=== PATIENT | male | born 1965 ===

== ENCOUNTER 2022-01-12 16:45 | Inpatient (IN) | payer OTHER ==
[~2022-01-12] VITALS: Ht 175.3 cm; Wt 127.3 kg
[2022-01-12] MEDS ORDERED: dilTIAZem DRIP PRE-MIX 125 ML IV SCH (17:00)
[2022-01-12] MEDS ORDERED: NS IV 1000 ML 1,000 ML ONE (17:02)
[2022-01-12] MEDS ORDERED: NS IV 1000 ML 1,000 ML IV SCH (17:15)
[2022-01-12 17:16] LABS: BASOPHILS # (AUTO) 0.1 10^3/uL (0.0-0.1); BASOPHILS % (AUTO) 1 % (0-10); EOSINOPHILS # (AUTO) 0.1 10^3/uL (0.0-0.3); EOSINOPHILS % (AUTO) 0 % (0-10); HEMATOCRIT 53 % (40-54); HEMOGLOBIN 17.5 g/dL (13.3-17.7); LYMPHOCYTES % (AUTO) 35 % (12-44); MEAN CORPUSCULAR HEMOGLOBIN 32 pg (25-34); MEAN CORPUSCULAR HGB CONC 33 g/dL (32-36); MEAN CORPUSCULAR VOLUME 97 fL (80-99); MEAN PLATELET VOLUME 9.9 fL (9.0-12.2); MONOCYTES # (AUTO) 0.8 10^3/uL (0.0-1.0); MONOCYTES % (AUTO) 7 % (0-12); NEUTROPHILS # (AUTO) 6.4 10^3/uL (1.8-7.8); NEUTROPHILS % (AUTO) 56 % (42-75); PLATELET COUNT 439 10^3/uL (130-400); WHITE BLOOD COUNT 11.4 10^3/uL (4.3-11.0)
--- NOTE | 2022-01-12 17:18 | Diagnostic Imaging Report ---
EXAMINATION: Chest 1 view HISTORY: Chest pain COMPARISON: None available. FINDINGS: The lungs are clear without edema or pneumonia. No pleural effusion or pneumothorax. Heart size is normal. IMPRESSION: 1. Clear lungs. Dictated by: Dictated on workstation # [id number]
[2022-01-12 17:29] LABS: CHLORIDE 101 MMOL/L (98-107); POTASSIUM 3.8 MMOL/L (3.6-5.0); SODIUM 141 MMOL/L (135-145)
[2022-01-12 17:30] LABS: CALCIUM 11.4 MG/DL (8.5-10.1)
[2022-01-12 17:31] LABS: GLUCOSE 102 MG/DL (70-105); TOTAL PROTEIN 10.4 GM/DL (6.4-8.2)
[2022-01-12 17:32] LABS: PROTHROMBIN TIME PATIENT 13.1 SEC (12.2-14.7)
[2022-01-12 17:33] LABS: BILIRUBIN,TOTAL 0.8 MG/DL (0.1-1.0); CARBON DIOXIDE 22 MMOL/L (21-32)
[2022-01-12 17:35] LABS: ALKALINE PHOSPHATASE 83 U/L (40-136); CREATININE SERUM 1.32 MG/DL (0.60-1.30); GFR ESTIMATED 63
[2022-01-12 17:36] LABS: BUN/CREATININE RATIO 11
[2022-01-12 17:38] LABS: ALANINE AMINOTRANSFERASE 53 U/L (0-55); MAGNESIUM 1.8 MG/DL (1.6-2.4)
[2022-01-12] MEDS ORDERED: ADENOSINE 6 MG/2 ML (ADENOCARD) VIAL IV ONE ×2 (18:15)
--- NOTE | 2022-01-12 18:39 | ED Chest Pain ---
General Chief Complaint: Cardiac/General Problems Stated Complaint: WEAK,OVERHEATED,DEHYDRATED Nursing Triage Note: PT AMB TO [facility] 5 WITH COMPLAINT OF WEAKNESS, SOB, AND NOT FEELING WELL. STATES HE WAS WORKING OUTSIDE. STATES HAS FELT BAD ALL DAYS. HX OF HEAT STROKE. Source: patient Exam Limitations: no limitations History of Present Illness Date Seen by Provider: Jan 12, 2022 Time Seen by Provider: 16:54 Initial Comments This 57-year-old gentleman presents to the emergency room by private vehicle with primary complaint of weakness and exhaustion. He has been noticing this feeling throughout the day but it has become progressively worse. He denies any significant shortness of breath. He has had no chest pain. 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 He reports the air conditioning in his vehicle was not working well today and it was extraordinarily hot. The high today was in the upper 90s. Upon arrival patient is noted to have extreme tachycardia with a heart rate in the 170s and 180s. He appears to have A. fib with RVR on the monitor. He denies any prior history of arrhythmias. He has previously been treated with amlodipine, atenolol, and atorvastatin for cardiovascular issues. He has not ever been diagnosed with coronary artery disease per his report. We have no history on file [place]. He denies tobacco use, admits to drinking 2 to 3 days/week, and denies drug use. Allergies and Home Medications Allergies Coded Allergies: Penicillins (Verified Allergy, Unknown, 01/12/22) Patient Home Medication List Home Medication List Reviewed: Yes Review of Systems Review of Systems Constitutional: see HPI EENTM: No Symptoms Reported Respiratory: No Symptoms Reported Cardiovascular: See HPI Gastrointestinal: No Symptoms Reported Genitourinary: No Symptoms Reported Musculoskeletal: no symptoms reported Skin: see HPI Psychiatric/Neurological: No Symptoms Reported Endocrine: No Symptoms Reported Hematologic/Lymphatic: No Symptoms Reported Past Kfzrhmm-Krilqe-Kfrjkx Hx Patient Social History Tobacco Use?: No Use of E-Cig and/or Vaping dev: No Substance use?: No Alcohol Use?: Yes Alcohol Frequency: Couple times a week Pt feels they are or have been: No Past Medical History Surgeries: Yes Orthopedic (Hand surgery) Respiratory: No Cardiac: Yes Hypertension Neurological: No Genitourinary: No Gastrointestinal: No Musculoskeletal: No Endocrine: Yes (Obesity) HEENT: No Cancer: No Did You Recieve Any Treatments: No Psychosocial: No Integumentary: No Physical Exam Vital Signs Vital Signs - First Documented 01/12/22 16:52 Temp 36.7 Pulse 180 Resp 24 B/P (MAP) 155/98 (117) Pulse Ox 97 O2 Delivery Room Air Capillary Refill : Less Than 3 Seconds Height, Weight, BMI Height: '" Weight: lbs. oz. 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 II-XII Norm as Tested Skin: Normal Color, Diaphoresis Progress/Results/Core Measures Results/Orders Lab Results Laboratory Tests Test 01/12/22 17:05 01/12/22 18:45 Range/Units White Blood Count 11.4 H 4.3-11.0 10^3/uL Red Blood Count 5.44 4.30-5.52 10^6/uL Hemoglobin 17.5 13.3-17.7 g/dL Hematocrit 53 40-54 % Mean Corpuscular Volume 97 80-99 fL Mean Corpuscular Hemoglobin 32 25-34 pg Mean Corpuscular Hemoglobin Concent 33 32-36 g/dL Red Cell Distribution Width 12.4 10.0-14.5 % Platelet Count 439 H 130-400 10^3/uL Mean Platelet Volume 9.9 9.0-12.2 fL Immature Granulocyte % (Auto) 0 % Neutrophils (%) (Auto) 56 42-75 % Lymphocytes (%) (Auto) 35 12-44 % Monocytes (%) (Auto) 7 0-12 % Eosinophils (%) (Auto) 0 0-10 % Basophils (%) (Auto) 1 0-10 % Neutrophils # (Auto) 6.4 1.8-7.8 10^3/uL Lymphocytes # (Auto) 4.0 1.0-4.0 10^3/uL Monocytes # (Auto) 0.8 0.0-1.0 10^3/uL Eosinophils # (Auto) 0.1 0.0-0.3 10^3/uL Basophils # (Auto) 0.1 0.0-0.1 10^3/uL Immature Granulocyte # (Auto) 0.0 0.0-0.1 10^3/uL Prothrombin Time 13.1 12.2-14.7 SEC INR Comment 1.0 0.8-1.4 Activated Partial Thromboplast Time 51 H 24-35 SEC Sodium Level 141 135-145 MMOL/L Potassium Level 3.8 3.6-5.0 MMOL/L Chloride Level 101 98-107 MMOL/L Carbon Dioxide Level 22 21-32 MMOL/L Anion Gap 18 H 5-14 MMOL/L Blood Urea Nitrogen 15 7-18 MG/DL Creatinine 1.32 H 0.60-1.30 MG/DL Estimat Glomerular Filtration Rate 63 BUN/Creatinine Ratio 11 Glucose Level 102 70-105 MG/DL Calcium Level 11.4 H 8.5-10.1 MG/DL Corrected Calcium 8.5-10.1 MG/DL Magnesium Level 1.8 1.6-2.4 MG/DL Total Bilirubin 0.8 0.1-1.0 MG/DL Aspartate Amino Transf (AST/SGOT) 48 H 5-34 U/L Alanine Aminotransferase (ALT/SGPT) 53 0-55 U/L Alkaline Phosphatase 83 40-136 U/L Myoglobin 93.1 H 10.0-92.0 NG/ML Troponin I < 0.028 <0.028 NG/ML Total Protein 10.4 H 6.4-8.2 GM/DL Albumin 5.0 H 3.2-4.5 GM/DL TSH [place] Testing 0.70 0.35-4.94 UIU/ML Urine Opiates Screen NEGATIVE NEGATIVE Urine Oxycodone Screen NEGATIVE NEGATIVE Urine Methadone Screen NEGATIVE NEGATIVE Urine Propoxyphene Screen NEGATIVE NEGATIVE Urine Barbiturates Screen NEGATIVE NEGATIVE Ur Tricyclic Antidepressants Screen NEGATIVE NEGATIVE Urine Phencyclidine Screen NEGATIVE NEGATIVE Urine Amphetamines Screen NEGATIVE NEGATIVE Urine Methamphetamines Screen NEGATIVE NEGATIVE Urine Benzodiazepines Screen NEGATIVE NEGATIVE Urine Cocaine Screen NEGATIVE NEGATIVE Urine Cannabinoids Screen NEGATIVE NEGATIVE My Orders Orders - EVIE MCCARTHY MD Ekg Tracing (01/12/22 16:54) Cbc With Automated Diff (01/12/22 16:56) Magnesium (01/12/22 16:56) Chest 1 View, Ap/Pa Only (01/12/22 16:56) Comprehensive Metabolic Panel (01/12/22 16:56) Myoglobin Serum (01/12/22 16:56) Protime With Inr (01/12/22 16:56) Partial Thromboplastin Time (01/12/22 16:56) O2 (01/12/22 16:56) Monitor-Rhythm Ecg Trace Only (01/12/22 16:56) Lipid Panel (01/13/22 06:00) Ed Iv/Invasive Line Start (01/12/22 16:56) Troponin I Carter (01/12/22 16:56) Diltiazem Drip Pre-Mix (Cardizem Drip Pr (01/12/22 17:00) Diltiazem Injection (Cardizem Injection) (01/12/22 17:00) Ns Iv 1000 Ml (Sodium Chloride 0.9%) (01/12/22 17:15) Ns Iv 1000 Ml (Sodium Chloride 0.9%) (01/12/22 17:02) Thyroid Analyzer (01/12/22 17:10) Ekg Tracing (01/12/22 18:10) Adenosine Injection (Adenocard Injection (01/12/22 18:15) Adenosine Injection (Adenocard Injection (01/12/22 18:15) Drug Screen Stat (Urine) (01/12/22 18:26) Metoprolol Succinate (Xl) Tab (Toprol Xl (01/12/22 19:00) Apixaban Tablet (Eliquis Tablet) (01/12/22 19:00) Fentanyl Inj (Sublimaze Injection) (01/12/22 19:00) Medications Given in ED Current Medications Medications Dose Ordered Sig/Macrina Route Start Time Stop Time Status Last Admin Dose Admin Adenosine 6 mg ONCE ONCE IV 01/12/22 18:15 01/12/22 18:16 DC 01/12/22 18:24 6 MG Apixaban 5 mg ONCE ONCE PO 01/12/22 19:00 01/12/22 19:05 DC 01/12/22 19:14 5 MG Diltiazem HCl 10 mg ONCE ONCE IVP 01/12/22 17:00 01/12/22 17:01 DC 01/12/22 17:04 10 MG Fentanyl Citrate 50 mcg ONCE ONCE IVP 01/12/22 19:00 01/12/22 19:05 DC 01/12/22 19:14 50 MCG Metoprolol Succinate 200 mg ONCE ONCE PO 01/12/22 19:00 01/12/22 19:05 DC 01/12/22 19:14 200 MG Vital Signs/I&O 01/12/22 01/12/22 16:52 17:04 Temp 36.7 Pulse 180 180 Resp 24 B/P (MAP) 155/98 (117) Pulse Ox 97 O2 Delivery Room Air Blood Pressure Mean: 117 Progress Progress Note #1: Time: 18:40 Progress Note Patient was promptly interviewed and examined upon arrival. EKG demonstrated A. fib with RVR. Patient was started on a Cardizem drip with a bolus. Rapid titration up to 20 mg/h seem to have a minimal effect. This dropped his heart rate to the 160s and 170s. The lowest heart rate observed was 118. We did have him perform Valsalva maneuvers and administered adenosine 6 mg in effort to uncover the underlying rhythm. Underlying rhythm did appear to be A. fib. Cardizem drip was started back at 20 mg/h after the adenosine treatment. Progress Note #2: Time: 19:18 Progress Note Patient did not have a satisfactory response to Cardizem drip. I spoke with Dr. Flores who recommended adding Toprol-XL 200 mg now and daily. He requested Eliquis to be given for anticoagulation. Patient was agreeable to admission. I discussed CODE STATUS and he requests a full code. Report is being given to the eICU. EKG #1: EKG Time: 16:58 Rate: 181 Rhythm: A Fib/Flutter Intervals: Normal ECG Impression: Atrial Fibrillation w/RVR Comment Atrial fibrillation with RVR. No ST elevation. Mild to moderate ST depression. No axis deviation. EKG #2: EKG Time: 18:15 Rate: 162 Rhythm: A Fib/Flutter ECG Impression: Atrial Fibrillation w/RVR Comment Atrial fibrillation with RVR. No ST elevation. ST depression again noted. No significant change from prior. EKG #3: EKG Time: 18:24 Rate: 124 Rhythm: A Fib/Flutter ECG Impression: Atrial Fibrillation w/RVR Comment Atrial fibrillation with RVR. This EKG demonstrates a change in rate secondary to administration of adenosine 6 mg push. Patient resumed significant tachycardia after a few seconds. No ST elevation. ST depression persist. Diagnostic Imaging Diagonstic Imaging: Xray Plain Films/CT/US/NM/MRI: chest Comments NAME: INNA ARITA [facility] REC#: [id number] PT STATUS: REG ER : 1965 PHYSICIAN: EVIE MCCARTHY MD ADMIT DATE: 01/12/22/ER Signed Date of Exam:01/12/22 CHEST 1 VIEW, AP/PA ONLY EXAMINATION: Chest 1 view HISTORY: Chest pain COMPARISON: None available. FINDINGS: The lungs are clear without edema or pneumonia. No pleural effusion or pneumothorax. Heart size is normal. IMPRESSION: 1. Clear lungs. Dictated by: Dictated on workstation # [id number] Dict: 01/12/22 1715 Trans: 01/12/22 1721 [id number] [id number] Interpreted by: BERNARDO TUCKER MD Electronically signed by: BERNARDO TUCKER MD 01/12/22 1721 Reviewed: Reviewed by Me Departure Communication (Admissions) Time/Spoke to Admitting Phy: 19:00 Dr. Valdez Time/Spoke to Consulting Phy: 18:50 Dr. Flores Impression Primary Impression: Atrial fibrillation with RVR Additional Impression: Hypertension Qualified Codes: I10 - Essential (primary) hypertension Disposition: ADMITTED INPATIENT Condition: Stable Admissions Decision to Admit Reason: Admit from ER (General) Decision to Admit/Date: Jan 12, 2022 Time/Decision to Admit Time: 18:50 Departure-Patient Inst. Referrals: NO,LOCAL PHYSICIAN (PCP/Family) Primary Care Physician EVIE MCCARTHY MD Jan 12, 2022 18:39
[2022-01-12] MEDS ORDERED: fentaNYL INJ 100 MCG/2 ML AMP IVP ONE (19:00)
[2022-01-12] MEDS ORDERED: APIXABAN 5 MG (ELIQUIS) TABLET PO ONE (19:00)
[2022-01-12] MEDS ORDERED: meTOprolol SUCCINATE 100 MG (TOPROL XL) TAB PO ONE (19:00)
[2022-01-12 19:21] LABS: AMPHETAMINE SCREEN, URINE NEGATIVE (NEGATIVE); BARBITURATE SCREEN URINE NEGATIVE (NEGATIVE); BENZODIAZEPINES SCREEN URINE NEGATIVE (NEGATIVE); CANNABINOID SCREEN, URINE NEGATIVE (NEGATIVE); COCAINE SCREEN URINE NEGATIVE (NEGATIVE); METHADONE STAT NEGATIVE (NEGATIVE); OPIATE SCREEN URINE NEGATIVE (NEGATIVE); OXYCODONE STAT NEGATIVE (NEGATIVE); PROPOXYPHENE STAT NEGATIVE (NEGATIVE); TRICYCLIC ANTIDEPRESSANTS SCRE NEGATIVE (NEGATIVE)
[2022-01-12] MEDS ORDERED: NS IV 500 ML 500 ML IV PRN (19:45)
--- NOTE | 2022-01-12 22:06 | Tele-ICU Consult ---
History of Present Illness History of Present Illness Date Seen by Provider: Jan 12, 2022 Date of Admission Reason for Visit: Atrial fibrillation RVR History of Present Illness 57 year old male with no past medical history presented to ED for worsening shortness of breath, malaise, and generalized weakness. Noted to be in atrial fibrillation with RVR. Allergies and Home Medications Allergies Coded Allergies: Penicillins (Verified Allergy, Unknown, 01/12/22) Past Medical/Social/Family Hx Patient Social History Tobacco Use?: No Use of E-Cig and/or Vaping dev: No Substance use?: No Alcohol Use?: Yes Alcohol type: Hard Liquor Alcohol Frequency: Couple times a week Pt stated abuse/neglect: No Immunizations Up To Date Influenza Vaccine Up-to-Date: No; Not Current Tetanus Booster (TDap): Unknown Current Status Advance Directives: No Communicates: Verbally Primary Language: Spanish Preferred Spoken Language: Spanish Is interpretation needed?: No Sensory deficits: Vision impairment Implanted or Applied Medical D: Orthopedic hardware Focused Exam Height, Weight, BMI Height: '" Weight: lbs. oz. kg; 41.16 BMI Method: Exam Exam Patient acknowledged, consented, and participated in this virtual visit which was conducted using real time audio/video Vital Signs Date Time Temp Pulse Resp B/P (MAP) Pulse Ox O2 Delivery O2 Flow Rate FiO2 01/12/22 19:31 97 Room Air 01/12/22 19:23 36.6 165 18 121/103 97 Room Air 01/12/22 17:04 180 01/12/22 16:52 36.7 180 24 155/98 (117) 97 Room Air Height & Weight Height: '" Weight: lbs. oz. 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
[2022-01-12] MEDS ORDERED: ACETAMINOPHEN 500 MG TAB (TYLENOL) PO ONE (22:30)
--- NOTE | 2022-01-12 22:41 | Progress Note ---
Subjective Subjective/Events-last exam TeleICU Brief Note 57 year old male with no past medical history presented to ED for worsening shortness of breath, malaise, and generalized weakness. Noted to be in atrial fibrillation with RVR. Started on a diltiazem gtt but still remained in RVR - given toprol xl by shingle inspector. Started on anticoagulation. Admitted to ICU. Discussed with RN at bedside. Currently with HR in low 100s on diltiazem gtt. No complaints. Not on oxygen. Otherwise, no other issues Labs reviewed. Imaging reviewed. EMR reviewed Discussed with renewable energy technician/Plan: Atrial fibrillation with RVR - on diltiazem gtt. given betablocker by cardiolog in ED. Continue close monitoring of HR. Otherwise, further evaluation by cardiology Spent 20 min of critcal care time remotely Objective Exam Last Set of Vital Signs Vital Signs Date Time Temp Pulse Resp B/P (MAP) Pulse Ox O2 Delivery O2 Flow Rate FiO2 01/12/22 19:31 97 Room Air 01/12/22 19:23 36.6 165 18 121/103 Capillary Refill : Less Than 3 Seconds Results Lab Laboratory Tests 01/12/22 17:05: White Blood Count 11.4H, Red Blood Count 5.44, Hemoglobin 17.5, Hematocrit 53, Mean Corpuscular Volume 97, Mean Corpuscular Hemoglobin 32, Mean Corpuscular Hemoglobin Concent 33, Red Cell Distribution Width 12.4, Platelet Count 439H, Mean Platelet Volume 9.9, Immature Granulocyte % (Auto) 0, Neutrophils (%) (Auto) 56, Lymphocytes (%) (Auto) 35, Monocytes (%) (Auto) 7, Eosinophils (%) (Auto) 0, Basophils (%) (Auto) 1, Neutrophils # (Auto) 6.4, Lymphocytes # (Auto) 4.0, Monocytes # (Auto) 0.8, Eosinophils # (Auto) 0.1, Basophils # (Auto) 0.1, Immature Granulocyte # (Auto) 0.0, Prothrombin Time 13.1, INR Comment 1.0, Activated Partial Thromboplast Time 51H, Sodium Level 141, Potassium Level 3.8, Chloride Level 101, Carbon Dioxide Level 22, Anion Gap 18H, Blood Urea Nitrogen 15, Creatinine 1.32H, Estimat Glomerular Filtration Rate 63, BUN/Creatinine Ratio 11, Glucose Level 102, Calcium Level 11.4H, Corrected Calcium , Magnesium Level 1.8, Total Bilirubin 0.8, Aspartate Amino Transf (AST/SGOT) 48H, Alanine Aminotransferase (ALT/SGPT) 53, Alkaline Phosphatase 83, Myoglobin 93.1H, Troponin I < 0.028, Total Protein 10.4H, Albumin 5.0H, TSH [place] Testing 0.70 01/12/22 18:45: Urine Opiates Screen NEGATIVE, Urine Oxycodone Screen NEGATIVE, Urine Methadone Screen NEGATIVE, Urine Propoxyphene Screen NEGATIVE, Urine Barbiturates Screen NEGATIVE, Ur Tricyclic Antidepressants Screen NEGATIVE, Urine Phencyclidine Screen NEGATIVE, Urine Amphetamines Screen NEGATIVE, Urine Methamphetamines Screen NEGATIVE, Urine Benzodiazepines Screen NEGATIVE, Urine Cocaine Screen NEGATIVE, Urine Cannabinoids Screen NEGATIVE Assessment/Plan Assessment/Plan Assess & Plan/Chief Complaint See above ALLYSON BONILLA MD Jan 12, 2022 22:41
[2022-01-12] MEDS ORDERED: dilTIAZem DRIP 125 MG/125 ML DRIP IV SCH (22:45)
[2022-01-12] MEDS ORDERED: ACETAMINOPHEN 500 MG TAB (TYLENOL) PO PRN (22:45)
[2022-01-12] MEDS ORDERED: CATHETER FLUSH 10 ML SYR IVP PRN (22:45)
[2022-01-12] MEDS ORDERED: ONDANSETRON 4 MG/2 ML (SDV) Z0FRAN IV PRN (22:45)
[2022-01-12] MEDS: APIXABAN 5 MG (ELIQUIS) TABLET PO SCH (23:09)
[2022-01-13 05:12] LABS: BASOPHILS # (AUTO) 0.1 10^3/uL (0.0-0.1); BASOPHILS % (AUTO) 1 % (0-10); EOSINOPHILS # (AUTO) 0.1 10^3/uL (0.0-0.3); EOSINOPHILS % (AUTO) 1 % (0-10); HEMATOCRIT 42 % (40-54); HEMOGLOBIN 14.1 g/dL (13.3-17.7); LYMPHOCYTES # (AUTO) 2.9 10^3/uL (1.0-4.0); LYMPHOCYTES % (AUTO) 33 % (12-44); MEAN CORPUSCULAR HEMOGLOBIN 33 pg (25-34); MEAN CORPUSCULAR HGB CONC 33 g/dL (32-36); MEAN CORPUSCULAR VOLUME 98 fL (80-99); MEAN PLATELET VOLUME 9.9 fL (9.0-12.2); MONOCYTES % (AUTO) 11 % (0-12); NEUTROPHILS # (AUTO) 4.5 10^3/uL (1.8-7.8); NEUTROPHILS % (AUTO) 53 % (42-75); PLATELET COUNT 350 10^3/uL (130-400); WHITE BLOOD COUNT 8.6 10^3/uL (4.3-11.0)
[2022-01-13] MEDS: CATHETER FLUSH 10 ML SYR IVP SCH ×2 (05:25→15:53)
[2022-01-13 05:29] LABS: ALBUMIN 3.6 GM/DL (3.2-4.5)
[2022-01-13 05:31] LABS: CALCIUM 9.3 MG/DL (8.5-10.1)
[2022-01-13 05:32] LABS: TOTAL PROTEIN 7.3 GM/DL (6.4-8.2)
[2022-01-13 05:34] LABS: BILIRUBIN,TOTAL 0.7 MG/DL (0.1-1.0); TRIGLYCERIDES 56 MG/DL (<150); VLDL CHOLESTEROL 11 MG/DL (5-40)
[2022-01-13 05:35] LABS: PHOSPHORUS 3.9 MG/DL (2.3-4.7)
[2022-01-13 05:36] LABS: CREATININE SERUM 0.97 MG/DL (0.60-1.30)
[2022-01-13 05:39] LABS: CHOLESTEROL 137 MG/DL (< 200); MAGNESIUM 1.8 MG/DL (1.6-2.4)
[2022-01-13 05:40] LABS: HDL CHOLESTEROL 58 MG/DL (40-60)
[2022-01-13] MEDS ORDERED: POTASSIUM CL 10MEQ/50ML IVPB 50 ML IV SCH (06:00)
[2022-01-13] MEDS ORDERED: KCL 20 MEQ TAB (K-DUR) PO SCH (06:00)
[2022-01-13] MEDS ORDERED: MAGNESIUM 1 GM/100 ML IVPB 100 ML IV SCH (06:00)
--- NOTE | 2022-01-13 08:22 | Short Stay Summary-Hospitalist ---
History of Present Illness HPI/Chief Complaint Pt is a 57yoAAM with a PMH of HTN and HLD who presented to the ER due to weakness and fatigue. He states he has been working on the [place] and he is here from [place] its been outside for a couple of days in extreme heat. He thought he was getting dehydrated and was nauseous. He attempted to rest multiple times to see if that would help but as soon as he returned to work his symptoms returned. He denies any chest pain. He did have palpitations. He ultimately felt it was unsafe to continue to work and decided to seek evaluation in the emergency department. He was found to have a heart rate of 180 on arr ival. He was given IV Cardizem which slowed his rate but he remained quite tachycardic and was then given adenosine. This confirmed atrial fibrillation with rapid ventricular rate. He was admitted to the ICU on a Cardizem drip. He was also given oral metoprolol. He converted to sinus rhythm and is feeling well this morning. He is unsure if he is ever been told he has atrial fibrillation though has previously followed with a concrete mixing plant superintendent for hypertension and hyperlipidemia. He states he feels 2000% better and is hopeful to be able to discharge. Source: patient Date Seen 01/13/22 Time Seen by a Provider: 08:15 Attending Physician No,Local Physician PCP Admitting Physician: Jaimee Valdez MD Attending Physician: Jaimee Valdez MD Referring Physician Date of Admission Jan 12, 2022 at 19:10 Home Medications & Allergies Home Medications Reviewed patient Home Medication Reconciliation performed by pharmacy medication reconciliations scheme technician and/or nursing. Patients Allergies have been reviewed. Allergies Allergies Coded Allergies Penicillins (Verified Allergy, Unknown, 01/12/22) Past Blnfgpu-Blupgo-Zyvbvo Hx Patient Social History Marrital Status: Employed/Student: employed Tobacco Use?: No Use of E-Cig and/or Vaping dev: No Substance use?: No Alcohol Use?: Yes Alcohol type: Hard Liquor Alcohol Frequency: Couple times a week Pt feels they are or have been: No Immunizations Up To Date Tetanus Booster (TDap): Unknown Current Status Advance Directives: No Communicates: Verbally Primary Language: Japanese Preferred Spoken Language: Japanese Is interpretation needed?: No Sensory deficits: Vision impairment Implanted or Applied Medical D: Orthopedic hardware Past Medical History Surgeries: Orthopedic (Hand surgery) High Cholesterol, Hypertension Did You Recieve Any Treatments: No Family Medical History Reviewed Nursing Family Hx No Pertinent Family Hx Review of Systems Constitutional: No chills; diaphoresis; No fever; malaise, weakness EENTM: no symptoms reported Respiratory: No cough Cardiovascular: No chest pain, No edema, No Hx of Intervention; palpitations Gastrointestinal: No abdominal pain, No constipation Genitourinary: no symptoms reported Musculoskeletal: no symptoms reported Skin: no symptoms reported Psychiatric/Neurological: No Symptoms Reported Physical Exam Physical Exam Vital Signs Vital Signs - First Documented 01/12/22 16:52 Temp 36.7 Pulse 180 Resp 24 B/P (MAP) 155/98 (117) Pulse Ox 97 O2 Delivery Room Air Capillary Refill : Less Than 3 Seconds Height, Weight, BMI Height: '" Weight: lbs. oz. kg; 41.42 BMI Method: General Appearance: No Apparent Distress, WD/WN, Obese HEENT: PERRL/EOMI, Normal ENT Inspection, Moist Mucous Membranes Neck: Normal Inspection, Supple Respiratory: Lungs Clear, No Accessory Muscle Use, No Respiratory Distress Cardiovascular: No Edema, No Murmur, Irregularly Irregular Gastrointestinal: Normal Bowel Sounds, Non Tender, Soft Extremity: Normal Capillary Refill, No Calf Tenderness, No Pedal Edema Neurologic/Psychiatric: Alert, Oriented x3, Normal Mood/Affect; No Aphasia, No Facial Droop Skin: Normal Color, Warm/Dry Results Results/Procedures Labs Laboratory Tests 01/12/22 17:05 01/13/22 04:55 Patient resulted labs reviewed. Imaging: Reviewed Imaging Report Imaging [facility] [place] NAME: INNA ARITA [facility] REC#: [id number] PT STATUS: REG ER : 1965 PHYSICIAN: EVIE MCCARTHY MD ADMIT DATE: 01/12/22/ER Signed Date of Exam:01/12/22 CHEST 1 VIEW, AP/PA ONLY EXAMINATION: Chest 1 view HISTORY: Chest pain COMPARISON: None available. FINDINGS: The lungs are clear without edema or pneumonia. No pleural effusion or pneumothorax. Heart size is normal. IMPRESSION: 1. Clear lungs. Dictated by: Dictated on workstation # [id number] Dict: 01/12/22 1715 Trans: 01/12/22 1721 [id number] [id number] Interpreted by: BERNARDO TUCKER MD Electronically signed by: BERNARDO TUCKER MD 01/12/22 1721 Short Stay Diagnosis Discharge Diagnosis-Short Stay Admission Diagnosis Atrial fibrillation with RVR Final Discharge Diagnosis Atrial fibrillation with RVR Conclusion Plan Atrial fibrillation with RVR HTN HLD New onset Converted overnight back to sinus Continue metoprolol Continue Eliquis for stroke ppx cardioogy consuled, appreciate recs Echo ordered Likely can DC home if unremarkable echo Needs follow up with his primary 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
[2022-01-13] MEDS: APIXABAN 5 MG (ELIQUIS) TABLET PO SCH (08:41)
[2022-01-13] MEDS ORDERED: meTOprolol SUCCINATE 100 MG (TOPROL XL) TAB PO SCH (09:00)
--- NOTE | 2022-01-13 09:20 | Tele-ICU Progress Note ---
Subjective Date Seen by a Provider: Jan 13, 2022 Time Seen by a Provider: 09:20 Subjective/Events-last exam (Tele-ICU Physician , progress note) Available chart/ vitals / labs / Images reviewed H&P is from ER notes Patient's information available about PMH, allergy reviewed in EMR. ROS as per chart and RN report Video assessment done using teleICU camera, rest of exam as per RN Discussed with RN. Patient today feeling better and his A. fib is converted to normal sinus rhythm. Denies any chest pain or shortness of breath. He is evaluated by the enterprise resource analyst. Started on beta-otis. Patient wants to go home and follow-up with his enterprise resource analyst in [place]. Echo has been ordered. Review of Systems ROS PER RN Sepsis Event Evaluation Height, Weight, BMI Height: '" Weight: lbs. oz. kg; 41.42 BMI Method: Exam Exam Patient acknowledged, consented, and participated in this virtual visit which w as conducted using real time audio/video Vital Signs Date Time Temp Pulse Resp B/P (MAP) Pulse Ox O2 Delivery O2 Flow Rate FiO2 01/13/22 08:00 36.2 01/13/22 08:00 73 12 134/85 (101) 96 Room Air 01/13/22 07:45 Room Air 01/13/22 07:00 66 15 120/73 (89) 97 Room Air 01/13/22 07:00 75 01/13/22 05:40 69 15 148/89 (108) 98 Room Air 01/13/22 04:00 36.4 01/13/22 04:00 97 Room Air 01/13/22 03:40 61 30 120/79 (93) 96 Room Air 01/13/22 02:40 64 51 114/77 (89) 97 Room Air 01/13/22 01:40 63 16 120/79 (93) 94 Room Air 01/13/22 01:00 64 01/13/22 00:40 65 4 119/73 (88) 96 Room Air 01/13/22 00:00 36.7 01/12/22 23:48 98 Room Air 01/12/22 22:40 71 9 99/81 (87) 93 Room Air 01/12/22 21:40 101 9 126/77 (93) 97 Room Air 01/12/22 20:40 118 17 113/95 (101) 96 Room Air 01/12/22 20:00 36.6 01/12/22 19:40 158 10 144/123 (130) 94 Room Air 01/12/22 19:31 97 Room Air 01/12/22 19:30 161 01/12/22 19:23 36.6 165 18 121/103 97 Room Air 01/12/22 17:04 180 01/12/22 16:52 36.7 180 24 155/98 (117) 97 Room Air I & O 01/13/22 07:00 Intake Total 2050 ml Output Total 450 ml Balance 1600 ml Height & Weight Height: '" Weight: lbs. oz. kg; 41.42 BMI Method: General Appearance: WD/WN, Mild Distress, Obese HEENT: PERRL/EOMI, Normal ENT Inspection Neck: Normal Inspection; No JVD Respiratory: Lungs Clear, Normal Breath Sounds, No Accessory Muscle Use Cardiovascular: No Edema, No Murmur, Irregularly Irregular, Tachycardia Capillary Refill: Less Than 3 Seconds Extremity: Normal Inspection, No Pedal Edema Neurologic/Psychiatric: Alert, Oriented x3, No Motor/Sensory Deficits, Normal Mood/Affect, infection prevention practitioner II-XII Norm as Tested Skin: Normal Color, Diaphoresis Other comments PE PER RN Results Lab Laboratory Tests 01/12/22 17:05 01/13/22 04:55 Assessment/Plan Assessment/Plan 1. Atrial fibrillation with rapid ventricular rate converted to normal sinus rhythm now. 2. History of hypertension noncompliant with the medications. Recommendations 1. Echo cardiogram has been ordered 2. Management of PAF per cardiology. 3. Discharge per cardiology and primary care TONYA VEGA MD Jan 13, 2022 09:20
--- NOTE | 2022-01-13 09:56 | Consultation-Cardiology ---
HPI-Cardiology Cardiology Consultation: Date of Consultation 01/13/22 Time Seen by a Provider: 09:10 Date of Admission Attending Physician No,Local Physician Admitting Physician Admitting Physician: Florence Valdez MD Attending Physician: Florence Valdez MD Consulting Physician RENAE LEPE MD, MA, FACP, FACC, [facility], CCDS Physician requesting consult: Dr Valdez HPI: Chief Complaint: Gen weakness and poor stamina 57 yo man who is visiting this are on a job (from [place]) who was seen in the ER for a day of gen malaise and weakness and poor stamina. He does not report cp or palp or syncope or shortness of breath. Feels well today at tie time of this interview. Denies swelling. Denies n/v/d. Denies focal weakness. Denies fever or chills. Was found to have A Fib with RVR at admission. Reports a h/o arrhythmia diagnosed by his retail service representative in [place]. Does not know any details. Says was on amlodipine and ASA daily until he ran out about a year ago Review of Systems-Cardiology Review of Systems Constitutional: As described under HPI Eyes: No vision change Ears/Nose/Throat: No ear discharge, No nasal drainage, No recent hearing loss Respiratory: As described under HPI Cardiovascular: As described under HPI Gastrointestinal: As described under HPI Genitourinary: No dysuria, No hematuria, No other Musculoskeletal: No back pain, No joint pain Skin: No rash, No ulcerations Psychiatric/Neurological: No seizure, No focal weakness, No syncope Hematologic: No bleeding abnormalities ZVH-Slheny-Paopdo Hx Patient Social History Have you traveled recently?: No Alcohol Use?: Yes Pt feels they are or have been: No Past Medical History PMH As described under Assessment. Family Medical History Family Medical History: Does not report fam h/o early CAD or SCD Allergies and Home Medications Allergies Coded Allergies: Penicillins (Verified Allergy, Unknown, 01/12/22) Patient Home Medication List Home Medication List Reviewed: Yes Physical Exam-Cardiology Physical Exam Vital Signs/I&O 01/12/22 01/12/22 01/13/22 01/13/22 22:40 23:48 00:00 00:40 Temp 36.7 Pulse 71 65 Resp 9 4 B/P (MAP) 99/81 (87) 119/73 (88) Pulse Ox 93 98 96 O2 Delivery Room Air Room Air Room Air 01/13/22 01/13/22 01/13/22 01/13/22 01:00 01:40 02:40 03:40 Pulse 64 63 64 61 Resp 16 51 30 B/P (MAP) 120/79 (93) 114/77 (89) 120/79 (93) Pulse Ox 94 97 96 O2 Delivery Room Air Room Air Room Air 01/13/22 01/13/22 01/13/22 01/13/22 04:00 04:00 05:40 07:00 Temp 36.4 Pulse 69 75 Resp 15 B/P (MAP) 148/89 (108) Pulse Ox 97 98 O2 Delivery Room Air Room Air 01/13/22 01/13/22 01/13/22 01/13/22 07:00 07:45 08:00 08:00 Temp 36.2 Pulse 66 73 Resp 15 12 B/P (MAP) 120/73 (89) 134/85 (101) Pulse Ox 97 96 O2 Delivery Room Air Room Air Room Air 01/13/22 00:00 Intake Total 1450 ml Output Total 250 ml Balance 1200 ml Capillary Refill : Less Than 3 Seconds Constitutional: AAO x 3, well-developed, well-nourished HEENT: EOMI, hearing is well preserved; No xanthelasmas are seen Neck: carotid pulses are 2 + bilaterally Respiratory: accessory muscle use, other (good, bilat air entry) Cardiovascular: regular rate-rhythm, S1 and S2, systolic murmur (faint DOLORES at card base) Gastrointestinal: No tender; soft; No guarding, No rebound; audible bowel sounds Extremities: No clubbing, No cyanosis, No significant edema Neurologic/Psychiatric: oriented x 3, other (moves all limbs equally) Skin: warm/dry; No rash, No ulcerations Data Review Labs Laboratory Tests 01/12/22 17:05: White Blood Count 11.4H, Red Blood Count 5.44, Hemoglobin 17.5, Hematocrit 53, Mean Corpuscular Volume 97, Mean Corpuscular Hemoglobin 32, Mean Corpuscular Hemoglobin Concent 33, Red Cell Distribution Width 12.4, Platelet Count 439H, Mean Platelet Volume 9.9, Immature Granulocyte % (Auto) 0, Neutrophils (%) (Auto) 56, Lymphocytes (%) (Auto) 35, Monocytes (%) (Auto) 7, Eosinophils (%) (Auto) 0, Basophils (%) (Auto) 1, Neutrophils # (Auto) 6.4, Lymphocytes # (Auto) 4.0, Monocytes # (Auto) 0.8, Eosinophils # (Auto) 0.1, Basophils # (Auto) 0.1, Immature Granulocyte # (Auto) 0.0, Prothrombin Time 13.1, INR Comment 1.0, Activated Partial Thromboplast Time 51H, Sodium Level 141, Potassium Level 3.8, Chloride Level 101, Carbon Dioxide Level 22, Anion Gap 18H, Blood Urea Nitrogen 15, Creatinine 1.32H, Estimat Glomerular Filtration Rate 63, BUN/Creatinine Ratio 11, Glucose Level 102, Calcium Level 11.4H, Corrected Calcium , Magnesium Level 1.8, Total Bilirubin 0.8, Aspartate Amino Transf (AST/SGOT) 48H, Alanine Aminotransferase (ALT/SGPT) 53, Alkaline Phosphatase 83, Myoglobin 93.1H, Troponin I < 0.028, Total Protein 10.4H, Albumin 5.0H, TSH Allen Testing 0.70 01/12/22 18:45: Urine Opiates Screen NEGATIVE, Urine Oxycodone Screen NEGATIVE, Urine Methadone Screen NEGATIVE, Urine Propoxyphene Screen NEGATIVE, Urine Barbiturates Screen NEGATIVE, Ur Tricyclic Antidepressants Screen NEGATIVE, Urine Phencyclidine Screen NEGATIVE, Urine Amphetamines Screen NEGATIVE, Urine Methamphetamines Screen NEGATIVE, Urine Benzodiazepines Screen NEGATIVE, Urine Cocaine Screen NEGATIVE, Urine Cannabinoids Screen NEGATIVE 01/13/22 04:55: White Blood Count 8.6, Red Blood Count 4.34, Hemoglobin 14.1, Hematocrit 42, [place] Corpuscular Volume 98, Mean Corpuscular Hemoglobin 33, Mean Corpuscular Hemoglobin Concent 33, Red Cell Distribution Width 12.5, Platelet Count 350, Mean Platelet Volume 9.9, Immature Granulocyte % (Auto) 1, Neutrophils (%) (Auto) 53, Lymphocytes (%) (Auto) 33, Monocytes (%) (Auto) 11, Eosinophils (%) (Auto) 1, Basophils (%) (Auto) 1, Neutrophils # (Auto) 4.5, Lymphocytes # (Auto) 2.9, Monocytes # (Auto) 1.0, Eosinophils # (Auto) 0.1, Basophils # (Auto) 0.1, Immature Granulocyte # (Auto) 0.1, Sodium Level 139, Potassium Level 4.0, Chloride Level 103, Carbon Dioxide Level 21, Anion Gap 15H, Blood Urea Nitrogen 14, Creatinine 0.97, Estimat Glomerular Filtration Rate 92, BUN/Creatinine Ratio 14, Glucose Level 104, Calcium Level 9.3, Corrected Calcium 9.6, Magnesium Level 1.8, Total Bilirubin 0.7, Aspartate Amino Transf (AST/SGOT) 34, Alanine Aminotransferase (ALT/SGPT) 38, Alkaline Phosphatase 63, Total Protein 7.3, Albumin 3.6, Phosphorus Level 3.9, Triglycerides Level 56, Cholesterol Level 137, LDL Cholesterol Direct 63, VLDL Cholesterol 11, HDL Cholesterol 58 Laboratory Tests 01/12/22 17:05 01/13/22 04:55 A/P-Cardiology Assessment/Admission Diagnosis PAF - presentation on 01/12/22, self-resolving Hypertension Elevated BMI (44) Discussion and Recomendations * He wishes to go home. Does not wish to stay in the hosp any longer * Beta-otis of control of bp and also to control ventricular rate during PAF * Eliquis for stroke prophylaxis * Advised sleep studies and cardiac w/u. He states he will take that up with his retail service representative in [place] * Advised compliance with meds * Advised return to ER for recurrent symptoms or new symptoms * He understands all of the above RENAE LEPE MD FACP [facility] Jan 13, 2022 09:56
[2022-01-13] MEDS ORDERED: APIX5TAB PO (10:36)
[2022-01-13] MEDS ORDERED: MTP100TCR PO (10:36)
--- NOTE | 2022-01-13 10:39 | Discharge Inst-Simple/Standard ---
Discharge Inst-Standard Discharge Medications New, Converted or Re-Newed RX: Transmitted to Pharmacy Patient Instructions/Follow Up Plan of Care/Instructions/FU: Please continue to take your medications as written. Please follow up with your primary care doctor to follow up this hospital stay. Activity as Tolerated: Yes Discharge Diet: Cardiac Diet Return to The Hospital For: Chest pain, shortness of breath, fever, weakness, if you feel you are getting worse. JAIMEE HEBERT MD Jan 13, 2022 10:39
[2022-01-13 15:45] VITALS: BP 145/90
== END 2022-01-13 15:45 | disposition home or self-care (01) | DRG 309 ==
LOC: ER 16:48 → ICU 19:10
PROVIDERS: ADMIT Family Medicine; ATTEND Family Medicine
DX: I48.0 Paroxysmal atrial fibrillation (principal); Z68.41 Body mass index [BMI] 40.0-44.9, adult; E66.9 Obesity, unspecified; I10 Essential (primary) hypertension; E78.5 Hyperlipidemia, unspecified; Z88.0 Allergy status to penicillin
CPT/HCPCS: 36415; 71045; 80053; 80061; 80306; 83735; 83874; 84100; 84443; 84484; 85025; 85610; 85730; 87081; 93005; 93041; 93306